=== PATIENT | male | born 1990 | race Caucasian/White ===

== ENCOUNTER 2017-04-19 16:05 | Emergency (ER) | payer OTHER ==
[~2017-04-19] VITALS: Ht 182.9 cm; Wt 70.3 kg
[2017-04-19] MEDS ORDERED: NAPR500T PO (16:19)
[2017-04-19] MEDS ORDERED: CYCL5TAB PO (16:19)
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
[2017-04-19 16:54] VITALS: BP 150/95
== END 2017-04-19 16:53 | disposition home or self-care (01) ==
LOC: EDUNIT# 16:05 → ER 16:10
DX: S39.012A Strain of muscle, fascia and tendon of lower back, initial encounter (principal); S16.1XXA Strain of muscle, fascia and tendon at neck level, initial encounter; V49.40XA Driver injured in collision with unspecified motor vehicles in traffic accident, initial encounter
CPT/HCPCS: 72100; 72125; 99281

== ENCOUNTER 2017-12-31 16:54 | Emergency (ER) | payer MEDICAID, OTHER ==
[~2017-12-31] VITALS: Ht 180.3 cm; Wt 70.3 kg
[~2017-12-31 16:54] MED LIST: CYCL5TAB PO; NAPR-1071 PO
[2017-12-31] MEDS ORDERED: TETANUS,DIPTH,PERTUSS P/F (BOOSTRIX) 0.5 ML VIAL IM STA (16:56)
[2017-12-31] MEDS ORDERED: NS IV 1000 ML 1,000 ML IV ONE (16:56)
--- OUTSIDE RECORDS SUMMARY | 2017-12-31 16:58 | XMS REPORT ---
Author Author FARIDEH MARCH [facility] Address [address] [place] [address] Care Team Providers Care Distribution Engineer Name Role Phone FARIDEH MARCH Unavailable PROBLEMS Type Condition ICD9-CM Code BRO14-ZW Code Onset Dates Condition Status SNOMED Code Problem Tobacco abuse Z72.0 Active 121879034 Problem Heavy alcohol consumption Z78.9 Active 56125870 ALLERGIES Substance Reaction Event Type Date Status N.K.D.A. Unknown Non Drug Allergy Nov, Unknown SOCIAL HISTORY No smoking Hx information available PLAN OF CARE Activity Details Follow Up prn Reason: VITAL SIGNS Height 72 in 2016-12-13 Weight 149 lbs 2016-12-13 Temperature 99.3 degrees Fahrenheit 2016-12-13 Heart Rate 100 bpm 2016-12-13 Respiratory Rate 20 2016-12-13 BMI 20.21 kg/m2 2016-12-13 Blood pressure systolic 126 mmHg 2016-12-13 Blood pressure diastolic 70 mmHg 2016-12-13 MEDICATIONS Medication Instructions Dosage Frequency Start Date End Date Duration Status Aleve 220 MG Orally every 12 hrs 1 tablet as needed 12h Active RESULTS No Results PROCEDURES Procedure Date Ordered Related Diagnosis Body Site Office Visit, Est Pt., Level 3 Dec 13, 2016 IMMUNIZATIONS No Known Immunizations
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
[2017-12-31 17:17] LABS: BASOPHILS % (AUTO) 0 % (0-10); EOSINOPHILS % (AUTO) 0 % (0-10); HEMATOCRIT 46 % (40-54); HEMOGLOBIN 16.4 G/DL (13.3-17.7); LYMPHOCYTES # (AUTO) 2.5 X 10^3 (1.0-4.0); LYMPHOCYTES % (AUTO) 32 % (12-44); MEAN CORPUSCULAR HEMOGLOBIN 35 PG (25-34); MEAN CORPUSCULAR HGB CONC 36 G/DL (32-36); MEAN CORPUSCULAR VOLUME 97 FL (80-99); MEAN PLATELET VOLUME 11.2 FL (7.4-10.4); MONOCYTES % (AUTO) 12 % (0-12); NEUTROPHILS # (AUTO) 4.4 X 10^3 (1.8-7.8); NEUTROPHILS % (AUTO) 56 % (42-75); PLATELET COUNT 163 10^3/uL (130-400); RED BLOOD COUNT 4.73 10^6/uL (4.35-5.85); RED CELL DISTRIBUTION WIDTH 12.2 % (10.0-14.5)
[2017-12-31 17:17] LABS: BILIRUBIN,URINE NEGATIVE (NEGATIVE); CLARITY,URINE CLEAR; COLOR,URINE OTHER; GLUCOSE, URINE (UA) NEGATIVE (NEGATIVE); KETONES,URINE NEGATIVE (NEGATIVE); LEUKOCYTE ESTERASE ,URINE NEGATIVE (NEGATIVE); NITRITE,URINE NEGATIVE (NEGATIVE); PH,URINE 6 (5-9); PROTEIN,URINE NEGATIVE (NEGATIVE); UROBILINOGEN,URINE NORMAL (NORMAL)
[2017-12-31 17:24] LABS: BACTERIA,URINE NEGATIVE /HPF; SQUAMOUS EPITHELIAL CELL,UR 0-2 /HPF
[2017-12-31 17:26] LABS: PROTHROMBIN TIME PATIENT 13.1 SEC (12.2-14.7)
[2017-12-31 17:30] LABS: AMPHETAMINE SCREEN, URINE NEGATIVE (NEGATIVE); BARBITURATE SCREEN URINE NEGATIVE (NEGATIVE); BENZODIAZEPINES SCREEN URINE NEGATIVE (NEGATIVE); CANNABINOID SCREEN, URINE POSITIVE (NEGATIVE); COCAINE SCREEN URINE NEGATIVE (NEGATIVE); METHADONE STAT NEGATIVE (NEGATIVE); METHAMPHETAMINE SCREEN URINE S NEGATIVE (NEGATIVE); OPIATE SCREEN URINE NEGATIVE (NEGATIVE); OXYCODONE STAT NEGATIVE (NEGATIVE); PROPOXYPHENE STAT NEGATIVE (NEGATIVE); TRICYCLIC ANTIDEPRESSANTS SCRE NEGATIVE (NEGATIVE)
[2017-12-31 17:35] LABS: ALANINE AMINOTRANSFERASE 17 U/L (0-55); ALBUMIN 4.8 GM/DL (3.2-4.5); ALKALINE PHOSPHATASE 63 U/L (40-136); BILIRUBIN,TOTAL 0.8 MG/DL (0.1-1.0); BUN/CREATININE RATIO 9; CALCIUM 9.3 MG/DL (8.5-10.1); CARBON DIOXIDE 21 MMOL/L (21-32); CHLORIDE 103 MMOL/L (98-107); CREATININE SERUM 0.87 MG/DL (0.60-1.30); GFR ESTIMATED > 60; GLUCOSE 87 MG/DL (70-105); POTASSIUM 3.5 MMOL/L (3.6-5.0); SALICYLATE < 5.0 MG/DL (5.0-20.0); SODIUM 139 MMOL/L (135-145)
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
[2017-12-31 18:29] VITALS: BP 125/89
== END 2017-12-31 18:27 | disposition home or self-care (01) ==
LOC: EDUNIT# 16:54 → ER 16:55
DX: S61.511A Laceration without foreign body of right wrist, initial encounter (principal); F10.129 Alcohol abuse with intoxication, unspecified; F12.10 Cannabis abuse, uncomplicated; F17.210 Nicotine dependence, cigarettes, uncomplicated; Z23 Encounter for immunization; Y28.0XXA Contact with sharp glass, undetermined intent, initial encounter
CPT/HCPCS: 36415; 80053; 80306; 80320; 80329; 81000; 85025; 85610; 85730; 90715

== ENCOUNTER 2019-05-22 09:10 | Emergency (ER) | payer MEDICAID ==
[~2019-05-22] VITALS: Ht 180.3 cm; Wt 64.4 kg
[2019-05-22] MEDS ORDERED: LIDOCAINE 1% INJ 20 ML 20 ML VIAL INJ ONE (10:00)
--- NOTE | 2019-05-22 10:07 | Diagnostic Imaging Report ---
Indication: Fall and injury to right elbow. Time of exam: 9:58 AM Three views of the right elbow were obtained. There are 2 partially threaded screws transfixing the medial epicondyle of the distal humerus. Hardware appears to be intact. Elbow alignment is normal. No fracture, dislocation or effusion is seen. There does appear to be some soft tissue swelling posteriorly. No soft tissue gas or bony destructive changes are seen. Impression: Posterior soft tissue swelling. No other significant abnormality is detected. Dictated by: Dictated on workstation # [id number]
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
[2019-05-22] MEDS ORDERED: ACHD5005 PO (10:56)
[2019-05-22 11:03] VITALS: BP 131/72
== END 2019-05-22 11:02 | disposition home or self-care (01) ==
LOC: EDUNIT# 09:10 → ER 09:12
DX: M70.31 Other bursitis of elbow, right elbow (principal); F17.210 Nicotine dependence, cigarettes, uncomplicated; W22.8XXA Striking against or struck by other objects, initial encounter
CPT/HCPCS: 26715; 73080; 87070; 87077; 87205

== ENCOUNTER 2020-11-02 12:38 | Emergency (ER) | payer OTHER, MEDICAID ==
[~2020-11-02] VITALS: Ht 180.3 cm; Wt 70.3 kg
[~2020-11-02 12:38] MED LIST changes: +ACHD5005 PO
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
[2020-11-02] MEDS ORDERED: MELO15TA14 PO (14:37)
[2020-11-02] MEDS ORDERED: CYCL10TA9 PO (14:37)
[2020-11-02 14:41] VITALS: BP 129/79
== END 2020-11-02 14:41 | disposition home or self-care (01) ==
LOC: EDUNIT# 12:38 → ER 12:39
DX: S16.1XXA Strain of muscle, fascia and tendon at neck level, initial encounter (principal); S29.012A Strain of muscle and tendon of back wall of thorax, initial encounter; S39.012A Strain of muscle, fascia and tendon of lower back, initial encounter; F17.210 Nicotine dependence, cigarettes, uncomplicated; V49.9XXA Car occupant (driver) (passenger) injured in unspecified traffic accident, initial encounter
CPT/HCPCS: 72125; 72128; 72131

== ENCOUNTER 2021-12-11 07:16 | Emergency (ER) | payer MEDICAID ==
[~2021-12-11] VITALS: Ht 180.3 cm; Wt 68.0 kg
[~2021-12-11 07:16] MED LIST changes: +CYCL10TA25 PO; +MELO15TA14 PO
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
--- NOTE | 2021-12-11 08:18 | Diagnostic Imaging Report ---
INDICATION: Wrist pain. 3 views were obtained FINDINGS: The alignment is normal. There is no fracture or dislocation. Soft tissues are unremarkable. IMPRESSION: No acute fracture or dislocation. There is a small well-corticated osseous density along the base of the 5th metacarpal likely reflecting old fracture. Dictated by: Dictated on workstation # [id number]
--- NOTE | 2021-12-11 08:40 | Diagnostic Imaging Report ---
Indication: Pain. FINDINGS: There is an old fracture deformity involving the base of the 5th metacarpal. There is no acute fracture or dislocation. Soft tissues are unremarkable. IMPRESSION: No acute fracture or dislocation. Old fracture deformity involving the base of the 5th metacarpal. Dictated by: Dictated on workstation # [id number]
[2021-12-11] MEDS ORDERED: HYDROcodone/APAP 5 MG/325 MG (LORTAB) TAB PO ONE (09:30)
[2021-12-11 09:33] VITALS: BP 135/95
== END 2021-12-11 09:33 | disposition home or self-care (01) ==
LOC: EDUNIT# 07:16 → ER 07:18
DX: S60.211A Contusion of right wrist, initial encounter (principal); S60.221A Contusion of right hand, initial encounter; V86.05XA Driver of 3- or 4- wheeled all-terrain vehicle (ATV) injured in traffic accident, initial encounter
CPT/HCPCS: 29125; 73110; 73130

== ENCOUNTER 2022-05-23 08:29 | Emergency (ER) | payer MEDICAID ==
[~2022-05-23] VITALS: Ht 180 cm; Wt 70.0 kg
[2022-05-23 09:25] LABS: BASOPHILS % (AUTO) 1 % (0-10); EOSINOPHILS # (AUTO) 0.1 10^3/uL (0.0-0.3); EOSINOPHILS % (AUTO) 1 % (0-10); HEMOGLOBIN 13.7 g/dL (13.3-17.7); MEAN CORPUSCULAR VOLUME 101 fL (80-99)
[2022-05-23 09:27] LABS: HEMATOCRIT 40 % (40-54); LYMPHOCYTES # (AUTO) 1.2 10^3/uL (1.0-4.0); LYMPHOCYTES % (AUTO) 23 % (12-44); MEAN CORPUSCULAR HEMOGLOBIN 35 pg (25-34); MEAN CORPUSCULAR HGB CONC 34 g/dL (32-36); MEAN PLATELET VOLUME 10.7 fL (9.0-12.2); MONOCYTES # (AUTO) 0.8 10^3/uL (0.0-1.0); MONOCYTES % (AUTO) 15 % (0-12); NEUTROPHILS # (AUTO) 3.2 10^3/uL (1.8-7.8); NEUTROPHILS % (AUTO) 60 % (42-75); PLATELET COUNT 124 10^3/uL (130-400); WHITE BLOOD COUNT 5.3 10^3/uL (4.3-11.0)
[2022-05-23] MEDS ORDERED: fentaNYL INJ 100 MCG/2 ML AMP IVP ONE (09:30)
[2022-05-23] MEDS ORDERED: LACTATED RINGERS 1,000 ML IV ONE (09:30)
--- NOTE | 2022-05-23 09:34 | ED Abdominal Pain ---
General Chief Complaint: Abdominal/GI Problems Stated Complaint: HERNIA PAIN Nursing Triage Note: PT AMB TO RM 5 WITH C/O GROIN PAIN SINCE MONDAY MORNING AND NOW HAS RADIATED TO BOTH GROINS. PT WENT TO [facility] YESTERDAY AND WAS TOLD HE POSS HAD A HERNIA AND SCHEDULED AN OUT PATIENT US Source of Information: Patient Exam Limitations: No Limitations History of Present Illness Date Seen by Provider: May 23, 2022 Time Seen by Provider: 09:14 Initial Comments Patient to the ER by private conveyance with chief complaint that Monday morning he noticed he had a lump in his groin it was quite painful. Has progressively gotten worse. [facility] and they set him up for an outpatient ultrasound. He was told to come to the ER if the pain was unbearable and he is not able to tolerate it despite Advil PM last night. No previous history of abdominal surgeries. No significant medical history. Last time he anything to eat or drink was last night. No dysuria, discharge fevers or chills. Allergies and Home Medications Allergies Coded Allergies: No Known Drug Allergies (Unverified , 10/31/14) Patient Home Medication List Home Medication List Reviewed: Yes Cyclobenzaprine HCl (Cyclobenzaprine HCl) 10 Mg Tablet, 10 MG PO Q8H PRN for SPASMS Prescribed by: ELKIN GARCIA on 11/02/20 1437 Hydrocodone Bit/Acetaminophen (Lortab 5 Mg Tablet) 1 Tab Tab, 1 EACH PO Q4-6HR PRN for PAIN-MODERATE Prescribed by: JIGNA COTTRELL on 05/22/19 1056 Hydrocodone/Acetaminophen (Hydrocodone-Acetamin 5-325 mg) 5 Mg-325 Mg Tablet, 1 TAB PO Q6H PRN for PAIN-MODERATE (5-7) Prescribed by: HANNAH MORLEY on 05/23/22 1135 Meloxicam (Mobic) 15 Mg Tablet, 15 MG PO DAILY Prescribed by: ELKIN GARCIA on 11/02/20 1437 Ondansetron (Ondansetron Odt) 4 Mg Tab.rapdis, 4 MG PO Q6H PRN for NAUSEA/VOMITING Prescribed by: HANNAH MORLEY on 05/23/22 1134 Review of Systems Review of Systems Constitutional: No chills, No fever EENTM: No Blurred Vision, No Double Vision Respiratory: Denies Cough, Denies Shortness of Air Cardiovascular: Denies Chest Pain, Denies Edema Gastrointestinal: See HPI, Abdominal Pain; Denies Constipated, Denies Diarrhea, Denies Nausea Genitourinary: See HPI; Denies Discharge, Denies Drainage Musculoskeletal: No back pain, No joint pain All Other Systems Reviewed Negative Unless Noted: Yes Past Kmhjgic-Wgmvnt-Pargmb Hx Patient Social History Tobacco Use?: Yes Tobacco type used: Cigarettes Smoking Status: Current Everyday Smoker Substance use?: No Alcohol Use?: No Pt feels they are or have been: No Immunizations Up To Date Tetanus Booster (TDap): Less than 5yrs Influenza Vaccine Up-to-Date: No; Not Current Seasonal Allergies Seasonal Allergies: No Past Medical History Surgery/Hospitalization HX: R ELBOW Surgeries: Yes (RIGHT ELBOW FX/ORIF) Orthopedic Respiratory: No Cardiac: No Neurological: No Reproductive Disorders: No Genitourinary: No Gastrointestinal: No Musculoskeletal: Yes (RIGHT ELBOW FX/ORIF) Fractures Endocrine: No HEENT: No Cancer: No Psychosocial: No Integumentary: No Blood Disorders: No Physical Exam Vital Signs Vital Signs - First Documented 05/23/22 09:00 Temp 36.5 Pulse 66 Resp 16 B/P (MAP) 121/89 (100) Capillary Refill : Height/Weight/BMI Height: 5'11.00" Weight: 142lbs. oz. 64.048128rf; 21.00 BMI Method:Stated General Appearance: WD/WN, mild distress HEENT: PERRL/EOMI, pharynx normal Neck: full range of motion, supple, normal inspection Respiratory: lungs clear, normal breath sounds, no respiratory distress, no accessory muscle use Cardiovascular: normal peripheral pulses, regular rate, rhythm Peripheral Pulses: 2+ Radial Pulses (R), 2+ Radial Pulses (L) Gastrointestinal: normal bowel sounds, soft, tenderness (Right inguinal canal with a small amount of known peristalsing soft tissue present at the superior end of the scrotum. Minimal left inguinal canal hernial defect) Extremities: normal range of motion, non-tender, normal capillary refill Neurologic/Psychiatric: alert, normal mood/affect, oriented x 3 Progress/Results/Core Measures Results/Orders Lab Results Laboratory Tests Test 05/23/22 09:11 05/23/22 11:26 Range/Units White Blood Count 5.3 4.3-11.0 10^3/uL Red Blood Count 3.93 L 4.30-5.52 10^6/uL Hemoglobin 13.7 13.3-17.7 g/dL Hematocrit 40 40-54 % Mean Corpuscular Volume 101 H 80-99 fL Mean Corpuscular Hemoglobin 35 H 25-34 pg Mean Corpuscular Hemoglobin Concent 34 32-36 g/dL Red Cell Distribution Width 12.6 10.0-14.5 % Platelet Count 124 L 130-400 10^3/uL Mean Platelet Volume 10.7 9.0-12.2 fL Immature Granulocyte % (Auto) 0 % Neutrophils (%) (Auto) 60 42-75 % Lymphocytes (%) (Auto) 23 12-44 % Monocytes (%) (Auto) 15 H 0-12 % Eosinophils (%) (Auto) 1 0-10 % Basophils (%) (Auto) 1 0-10 % Neutrophils # (Auto) 3.2 1.8-7.8 10^3/uL Lymphocytes # (Auto) 1.2 1.0-4.0 10^3/uL Monocytes # (Auto) 0.8 0.0-1.0 10^3/uL Eosinophils # (Auto) 0.1 0.0-0.3 10^3/uL Basophils # (Auto) 0.0 0.0-0.1 10^3/uL Immature Granulocyte # (Auto) 0.0 0.0-0.1 10^3/uL Percent Immature Platelet Fraction 6.5 0.0-7.6 % Sodium Level 141 135-145 MMOL/L Potassium Level 3.6 3.6-5.0 MMOL/L Chloride Level 103 98-107 MMOL/L Carbon Dioxide Level 25 21-32 MMOL/L Anion Gap 13 5-14 MMOL/L Blood Urea Nitrogen 10 7-18 MG/DL Creatinine 0.77 0.60-1.30 MG/DL Estimat Glomerular Filtration Rate 123 BUN/Creatinine Ratio 13 Glucose Level 86 70-105 MG/DL Calcium Level 8.3 L 8.5-10.1 MG/DL Corrected Calcium 8.3 L 8.5-10.1 MG/DL Total Bilirubin 0.5 0.1-1.0 MG/DL Aspartate Amino Transf (AST/SGOT) 31 5-34 U/L Alanine Aminotransferase (ALT/SGPT) 23 0-55 U/L Alkaline Phosphatase 65 40-136 U/L C-Reactive Protein High Sensitivity 1.44 H 0.00-0.50 MG/DL Total Protein 7.0 6.4-8.2 GM/DL Albumin 4.0 3.2-4.5 GM/DL Urine Color YELLOW Urine Clarity CLOUDY Urine pH 8.0 5-9 Urine Specific [place] 1.015 L 1.016-1.022 Urine Protein NEGATIVE NEGATIVE Urine Glucose (UA) NEGATIVE NEGATIVE Urine Ketones NEGATIVE NEGATIVE Urine Nitrite NEGATIVE NEGATIVE Urine Bilirubin NEGATIVE NEGATIVE Urine Urobilinogen 0.2 < = 1.0 MG/DL Urine Leukocyte Esterase NEGATIVE NEGATIVE Urine RBC (Auto) NEGATIVE NEGATIVE Urine RBC NONE /HPF Urine WBC RARE /HPF Urine Squamous Epithelial Cells RARE /HPF Urine Crystals PRESENT H /LPF Urine Amorphous Sediment LARGE LUIS PHOSPHATE H /LPF Urine Bacteria NEGATIVE /HPF Urine Casts NONE /LPF Urine Mucus NEGATIVE /LPF Urine Culture Indicated NO My Orders Orders - HANNAH MORLEY Cbc With Automated Diff (05/23/22 09:18) Comprehensive Metabolic Panel (05/23/22 09:18) Hs C Reactive Protein (05/23/22 09:18) Ua Culture If Indicated (05/23/22 09:18) Us Scrotum (Testicle) [id number] (05/23/22 09:18) Ed Iv/Invasive Line Start (05/23/22 09:18) Ed Iv/Invasive Line Start (05/23/22 09:27) Lactated Ringers (Lr 1000 Ml Iv Solution (05/23/22 09:30) Fentanyl Inj (Sublimaze Injection) (05/23/22 09:30) Ondansetron Injection (Zofran Injectio (05/23/22 10:00) Hydrocodone/Apap 5/325 Tablet (Lortab 5 (05/23/22 11:15) Medications Given in ED Current Medications Medications Dose Ordered Sig/Rupert Route Start Time Stop Time Status Last Admin Dose Admin Acetaminophen/ Hydrocodone Bitart 1 ea ONCE ONCE PO 05/23/22 11:15 05/23/22 11:16 DC 05/23/22 11:20 1 EA Fentanyl Citrate 50 mcg ONCE ONCE IVP 05/23/22 09:30 05/23/22 09:31 DC 05/23/22 09:33 50 MCG Lactated Ringer's 1,000 ml @ 0 mls/hr Q0M ONCE IV 05/23/22 09:30 05/23/22 09:31 DC 05/23/22 09:33 1,000 MLS/HR Ondansetron HCl 8 mg ONCE ONCE IVP 05/23/22 10:00 05/23/22 10:01 DC 05/23/22 10:07 8 MG Vital Signs/I&O 05/23/22 09:00 Temp 36.5 Pulse 66 Resp 16 B/P (MAP) 121/89 (100) Blood Pressure Mean: 100 Progress Progress Note : Time: 09:34 Progress Note The patient is thirsty and has not had anything to eat or drink since yesterday. We will give him a liter of fluids, keep him n.p.o., 50 mcg of fentanyl and get an ultrasound of his right inguinal canal to rule out strangulation. Spoke to Dr. Dumont, general surgery and he does not have time to do elective inguinal repair today but would be willing to follow the patient up in his clinic on Monday. We made an attempt to reduce the hernia tissue and were not able to force it back and because of his intolerance to the pain. Diagnostic Imaging Diagonstic Imaging: Ultrasound Plain Films/CT/US/NM/MRI: pelvis (Scrotum) Comments [facility] [place] NAME: KATIANA T[facility]EDO [facility] REC#: [id number] PT STATUS: REG ER : 1990 PHYSICIAN: HANNAH MORLEY MD ADMIT DATE: 05/23/22/ER Draft Date of Exam:05/23/22 US SCROTUM (Testicle) [id number] INDICATION: Bilateral testicular pain x2 days TECHNIQUE: Real-time grayscale sonographic imaging and color vascular evaluation of the scrotum. CORRELATION STUDY: None FINDINGS: RIGHT TESTICLE: 4.5 x 1.7 x 3.3 cm. LEFT TESTICLE: 4.5 x 1.9 x 3.0 cm. The testicles are in normal location and demonstrate homogeneous echotexture. There is vascular flow to the testicles. The epididymides appear unremarkable. IMPRESSION: 1. Unremarkable scrotal ultrasound examination. Dictated on workstation # [id number] Dict: 05/23/22 1115 Trans: 05/23/22 1116 DO [id number] Interpreted by: POLLO LOPEZ DO Electronically signed by: Reviewed: Reviewed by Me Departure Impression Primary Impression: Right inguinal hernia Disposition: 01 HOME, SELF-CARE Condition: Stable Departure-Patient Inst. Decision time for Depature: 12:41 Referrals: [facility] [place] Primary Care Physician LIZ DUMONT DO Patient Instructions: Inguinal and Femoral (Groin) Hernias Add. Discharge Instructions: Follow up with Dr. Dumont on 05/25/22 at 2:00 in the afternoon. Arrived a little early for paperwork. Ondansetron 1 tablet every 6 hours as needed for nausea or vomiting. Hydrocodone 1 tablet every 6 hours needed for severe pain. Tylenol 1000 mg every 8 hours needed for pain. Ibuprofen 800 mg every 8 hours needed for pain. Heating pads may be helpful. Return to the ER for severe, uncontrollable symptoms. All discharge instructions reviewed with patient and/or family. Voiced understanding. Scripts Hydrocodone/Acetaminophen (Hydrocodone-Acetamin 5-325 mg) 5 Mg-325 Mg Tablet 1 TAB PO Q6H PRN for PAIN-MODERATE (5-7), #12 TAB 0 Refills Prov: HANNAH MORLEY 05/23/22 Ondansetron (Ondansetron Odt) 4 Mg Tab.rapdis 4 MG PO Q6H PRN for NAUSEA/VOMITING, #12 TAB 0 Refills Prov: HANNAH MORLEY 05/23/22 Work/School Note: Work Release Form Date Seen in the Emergency Department: May 23, 2022 Return to Work: May 26, 2022 Restrictions: No Restrictions Copy Copies To 1: LIZ DUMONT TITUS J May 23, 2022 09:33
[2022-05-23 09:38] LABS: POTASSIUM 3.6 MMOL/L (3.6-5.0)
[2022-05-23 09:39] LABS: CALCIUM 8.3 MG/DL (8.5-10.1)
[2022-05-23 09:43] LABS: BILIRUBIN,TOTAL 0.5 MG/DL (0.1-1.0)
[2022-05-23 09:44] LABS: CREATININE SERUM 0.77 MG/DL (0.60-1.30)
[2022-05-23] MEDS ORDERED: ONDANSETRON 4 MG/2 ML (SDV) Z0FRAN IVP ONE (10:00)
[2022-05-23] MEDS ORDERED: HYDROcodone/APAP 5 MG/325 MG (LORTAB) TAB PO ONE (11:15)
--- NOTE | 2022-05-23 11:16 | Diagnostic Imaging Report ---
INDICATION: Bilateral testicular pain x2 days TECHNIQUE: Real-time grayscale sonographic imaging and color vascular evaluation of the scrotum. CORRELATION STUDY: None FINDINGS: RIGHT TESTICLE: 4.5 x 1.7 x 3.3 cm. LEFT TESTICLE: 4.5 x 1.9 x 3.0 cm. The testicles are in normal location and demonstrate homogeneous echotexture. There is vascular flow to the testicles. The epididymides appear unremarkable. IMPRESSION: 1. Unremarkable scrotal ultrasound examination. Dictated by: Dictated on workstation # [id number]
[2022-05-23 11:31] LABS: BILIRUBIN,URINE NEGATIVE (NEGATIVE); CLARITY,URINE CLOUDY; COLOR,URINE YELLOW; GLUCOSE, URINE (UA) NEGATIVE (NEGATIVE); KETONES,URINE NEGATIVE (NEGATIVE); LEUKOCYTE ESTERASE ,URINE NEGATIVE (NEGATIVE); NITRITE,URINE NEGATIVE (NEGATIVE); PROTEIN,URINE NEGATIVE (NEGATIVE)
[2022-05-23] MEDS ORDERED: ACHD5005 PO (11:34)
[2022-05-23] MEDS ORDERED: ONDA4TAB11 PO (11:34)
[2022-05-23 11:41] LABS: AMORPHOUS SEDIMENT,UR LARGE AMOR PHOSPHATE /LPF; BACTERIA,URINE NEGATIVE /HPF; SQUAMOUS EPITHELIAL CELL,UR RARE /HPF; WBC,URINE RARE /HPF
[2022-05-23 12:55] VITALS: BP 124/89
== END 2022-05-23 12:56 | disposition home or self-care (01) ==
LOC: EDUNIT# 08:29 → ER 08:30
DX: K40.90 Unilateral inguinal hernia, without obstruction or gangrene, not specified as recurrent (principal); F17.210 Nicotine dependence, cigarettes, uncomplicated; Z28.310 Unvaccinated for COVID-19
CPT/HCPCS: 36415; 76870; 80053; 81000; 85025; 86141

== ENCOUNTER 2022-06-02 05:32 | Outpatient (CLI) | payer MEDICAID ==
[~2022-06-02] VITALS: Ht 175.3 cm; Wt 70.3 kg
[~2022-06-02 05:32] MED LIST changes: +ONDA4TAB11 PO
== END 2022-06-07 11:35 ==
LOC: PREOP 05:32
PROVIDERS: ATTEND Surgery
DX: Z01.818 Encounter for other preprocedural examination (principal); K40.90 Unilateral inguinal hernia, without obstruction or gangrene, not specified as recurrent

== ENCOUNTER 2022-06-09 09:58 | Day surgery (SDC) | payer MEDICAID ==
[2022-06-09] VITALS (10 sets, daily range): BP systolic 119–155; BP diastolic 74–106
[~2022-06-09] VITALS: Ht 175.3 cm; Wt 70.3 kg
[2022-06-09] MEDS ORDERED: ceFAZolin 2 GM IV Premixed 50 ML IV ONE (10:15)
[2022-06-09] MEDS ORDERED: LIDOCAINE/EPI 2% 1:200,00 (XYLOCAINE) 20 ML VIAL ONE (10:27)
[2022-06-09] MEDS: LACTATED RINGERS 1,000 ML IV PRN ×2 (10:37→12:20)
--- NOTE | 2022-06-09 10:39 | Progress Note-Pre Operative ---
Pre-Operative Progress Note H&P Reviewed The H&P was reviewed, patient examined and no changes noted. Date Seen by Provider: Jun 09, 2022 Time Seen by Provider: 10:39 Date H&P Reviewed: Jun 09, 2022 Time H&P Reviewed: 10:39 Pre-Operative Diagnosis: right inguinal hernia LIZ DUMONT DO Jun 09, 2022 10:39
[2022-06-09] MEDS ORDERED: proPOfol 200 MG/20 ML (DIPRIVAN) VIAL IV ONE ×2 (11:12→13:25)
[2022-06-09] MEDS ORDERED: fentaNYL INJ 100 MCG/2 ML AMP ONE ×2 (11:13→11:42)
[2022-06-09] MEDS ORDERED: MIDAZOLAM 2 MG/2 ML (VERSED) VIAL ONE (11:13)
[2022-06-09] MEDS ORDERED: DOCU-143 PO (12:57)
[2022-06-09] MEDS ORDERED: ACHD5005 PO (12:57)
--- NOTE | 2022-06-09 12:58 | Discharge Inst-Simple/Standard ---
Discharge Inst-Standard Discharge Medications New, Converted or Re-Newed RX: Transmitted to Pharmacy Patient Instructions/Follow Up Plan of Care/Instructions/FU: 2 weeks Christopher Activity as Tolerated: No Discharge Diet: Regular Diet Other Inst to Patient Follow up Appt: Make appointment for 2 week. Instructions: No lifting greater than 10 pounds. No strenuous activity. May shower in 24 hours, no tub bath or soaking. Use incentive spirometer at home as directed. No Smoking Skin/Wound Care: You have special glue over your incision that will fall off on it's own. Symptoms to Report: Appetite Changes, Extremity Discoloration, Numbness/Tingling, Swelling Increased, Bleeding Excessive, Eyesight Changes, Pain Increased, Urine Color Change, Constipation(Persistent), Fever over 101 degree F, Pain/Pressure in chest, Urinating Difficulty, Cough Up/Vomit Blood, Heart Beat Irreg/Pounding, Pain/Pressure in jaw, Vaginal Bleeding Increase, Cramps in feet or legs, Lightheadedness, Pain/Pressure in shoulder, Diarrhea(Persistent), Memory Changes Suddenly, Questions/Concerns, Weight gain consecutive days, Dizziness/Fainting, Nausea/Vomiting, Shortness of Breath, Weight gain over 2 pounds If questions or concerns contact your physician Or seek help at emergency department. LIZ DUMONT DO Jun 09, 2022 12:58
--- NOTE | 2022-06-09 13:09 | Anesthesia-General Post-Op ---
General Patient Condition Mental Status/LOC: Same as Preop Cardiovascular: Satisfactory Nausea/Vomiting: Absent Respiratory: Satisfactory Pain: Controlled Complications: Absent Post Op Complications Complications None Follow Up Care/Instructions Patient Instructions None needed. Anesthesia/Patient Condition Patient Condition Patient is doing well, no complaints, stable vital signs, no apparent adverse anesthesia problems. No complications reported per nursing. ANTONIA FORD CRNA Jun 09, 2022 13:09
[2022-06-09] MEDS ORDERED: HYDROmorphone 2 MG/ML VIAL (DILAUDID) IV ONE (13:15)
[2022-06-09] MEDS ORDERED: MEPERIDINE (DEMEROL) INJ 50 MG/ML IVP ONE (13:15)
[2022-06-09] MEDS ORDERED: PROMETHAZINE INJ 25 MG/ML (PHENERGAN) AMP IVP ONE (13:15)
[2022-06-09] MEDS ORDERED: ONDANSETRON 4 MG/2 ML (SDV) Z0FRAN IVP PRN (13:15)
[2022-06-09] MEDS ORDERED: ONDANSETRON 4 MG/2 ML (SDV) Z0FRAN ONE (13:25)
[2022-06-09] MEDS ORDERED: ROCURONIUM 50 MG/5 ML (ZEMURON) VIAL IV ONE (13:25)
[2022-06-09] MEDS ORDERED: KETOROLAC 30 MG/ML VIAL ONE (13:25)
[2022-06-09] MEDS ORDERED: SEVOFLURANE (ULTANE) 15 ML INHAL SOLN ONE (13:25)
--- NOTE | 2022-06-09 13:57 | Progress Note-Post Operative ---
Post-Operative Progess Note Surgeon (s)/Minute Clerk For Basic Traffic (s) Surgeon LIZ DUMONT DO Minute Clerk For Basic Traffic: Dr. Selby Pre-Operative Diagnosis right inguinal hernia Post-Operative Diagnosis right femoral incarcerated hernia, cord lipoma Procedure & Operative Findings Date of Procedure 06/09/22 Procedure Performed/Findings robotic right incarcerated femoral hernia repair and excision cord lipoma Anesthesia Type gen Estimated Blood Loss Estimated blood loss (mL): minimal Specimens/Packing Specimens Removed cord lipoma LIZ DUMONT DO Jun 09, 2022 13:57
[2022-06-09] MEDS ORDERED: HYDROcodone/APAP 5 MG/325 MG (LORTAB) TAB PO ONE (14:00)
[2022-06-09] MEDS ORDERED: HYDROcodone/APAP 5 MG/325 MG (LORTAB) TAB ONE (14:06)
--- NOTE | 2022-06-09 15:36 | OPERATIVE REPORT ---
DATE OF SERVICE: 06/09/2022 PREOPERATIVE DIAGNOSIS: Right inguinal hernia. POSTOPERATIVE DIAGNOSIS: Right incarcerated femoral hernia and cord lipoma. PROCEDURE: Robotic right incarcerated femoral hernia repair with mesh, excision of cord lipoma. SURGEON: Liz White DO HOUSEKEEPING SUPERVISOR: Dr. Selby. ANESTHESIA: General. ESTIMATED BLOOD LOSS: Minimal. COMPLICATIONS: None. INDICATIONS: The patient is a 31-year-old male with right inguinal hernia. He understands risks and benefits of procedure and wishes to proceed. Consent was signed in the chart. DESCRIPTION OF PROCEDURE: The patient was taken to the operating suite, was prepped and draped in sterile fashion. Timeout was performed. Local anesthetic was infiltrated just above the umbilicus, 11 blade scalpel was used to make a skin incision. The cautery was used to dissect down to the fascia, which was then divided, and the abdomen was opened. A 0 Vicryl was placed in a [id number] fashion for closure at the end of the case. A lazcano trocar was inserted, and pneumoperitoneum was achieved. Under direct visualization of the camera, an 8 mm trocar was placed in the right side of the abdomen, 8 mm trocar was placed in the left side of the abdomen. The robot was then docked. The peritoneum was then taken down on the right side and all the way to Aba's ligament and laterally for visualization. There is an incarcerated fat through the femoral hernia. This was mobilized bluntly and able to be removed. Also noting cord lipoma, which was excised with cautery scissors. Once the peritoneum was taken down and the cord was inspected, there was no indirect or direct hernia. A 3DMax right mesh was inserted. This was secured to Aba's ligament with 3-0 Vicryl. The mesh was tacked laterally as well with 3-0 Vicryl. The peritoneum was then closed using a 3-0 V-Loc. A small hole was made in the peritoneum, which was closed with 3-0 Vicryl. The abdomen was then desufflated. The 0 Vicryl was placed at the beginning of the case was then tied closing 12 mm trocar site. The trocars were removed. The skin was then closed using 4-0 Monocryl and the area was washed and dried and Skin Affix was placed over the incisions. The patient tolerated the procedure well without any complications, taken to recovery room in stable condition. CC: [facility] - requested, unable to deliver. Job ID: [id number] DocumentID: [id number] Dictated Date: 06/09/2022 14:53:19 Software Release Manager Date: 06/09/2022 15:35:14 Dictated By: LIZ WHITE DO
== END 2022-06-09 14:50 | disposition home or self-care (01) ==
LOC: SDC 09:58
PROVIDERS: ATTEND Surgery
DX: K40.30 Unilateral inguinal hernia, with obstruction, without gangrene, not specified as recurrent (principal); D17.6 Benign lipomatous neoplasm of spermatic cord
CPT/HCPCS: 49650; 55559; 87081; C1781